=== PATIENT | female | born 2000 | race Two or more races ===

== ENCOUNTER 2023-04-07 02:21 | Emergency (ER) | payer MEDICAID, OTHER ==
[~2023-04-07] VITALS: Ht 152.4 cm; Wt 57.9 kg
[2023-04-07 02:27] VITALS: BP 108/64; PULSE 82; RESP 14; O2SAT 98
== END 2023-04-07 03:01 | disposition left against medical advice (07) ==
LOC: ER 02:21
DX: R21 Rash and other nonspecific skin eruption (principal); Z53.21 Procedure and treatment not carried out due to patient leaving prior to being seen by health care provider